=== PATIENT | male | born 1990 | race Two or more races ===

== ENCOUNTER 2024-08-10 13:16 | Emergency (ER) | payer OTHER ==
[2024-08-10 13:25] VITALS: BP 130/85; PULSE 90; RESP 18; TEMP 98.4; BMI 34.3
[2024-08-10] MEDS ORDERED: IBUPROFEN 400 MG TABLET (FP) PO ONE (14:31)
[2024-08-10] MEDS: IBUPROFEN 400 MG TABLET (FP) PO ONE (14:42)
== END 2024-08-10 14:52 | disposition home or self-care (01) ==
LOC: JERFT 13:16
DX: S39.012A Strain of muscle, fascia and tendon of lower back, initial encounter (principal); X50.1XXA Overexertion from prolonged static or awkward postures, initial encounter; Y99.0 Civilian activity done for income or pay
CPT/HCPCS: 99283-25